=== PATIENT | female | born 1950 | race Caucasian/White ===

== ENCOUNTER 2022-05-01 10:14 | Observation (INO) ==
[2022-05-01] MEDS ORDERED: NS 0.9% 1000 ml BAG 1,000 ML IV ONE (10:15)
[2022-05-01 11:06] LABS: ABS Basophils 0.2 10^3/ul (0-0.2); ABS Eosinophils 0.3 10^3/ul (0-0.6); ABS Lymphocytes 1.5 10^3/ul (1.0-4.8); ABS Monocytes 0.6 10^3/ul (0-0.8); ABS Neutrophils 6.4 10^3/ul (1.5-7.7); Eosinophil % 3.5 %; Hematocrit 29 % (35-47); Hemoglobin 8.9 g/dL (12.0-16.0); Lymphocyte % 16.5 %; Mean Corpuscular HGB Conc 31 g/dL (31-36); Mean Corpuscular Hemoglobin 21 pg (27-31); Mean Corpuscular Volume 68 fL (80-97); Mean Platelet Volume 7.5 fL (7.4-10.4); Platelet Count 489 10^3/uL (150-450); Red Blood Count 4.27 10^6 /uL (3.70-4.87); Red Cell Distribution Width 22 % (10-15); White Blood Count 8.9 10^3/uL (3.5-10.8)
[2022-05-01 11:15] LABS: INR 4.19 (0.86-1.15)
[2022-05-01 11:42] LABS: Albumin 3.2 g/dL (3.2-5.2); Albumin/Globulin Ratio 1.4 (1-3); Calcium 7.2 mg/dL (8.6-10.3); Globulin 2.3 g/dL (2-4); HDL Cholesterol 27.6 mg/dL; Potassium 3.4 mmol/L (3.5-5.0); Total Bilirubin 0.4 mg/dL (0.2-1.0); Total Protein 5.5 g/dL (6.4-8.9); eGFR CKD-EPI 62.5 (>60)
[2022-05-01 12:26] LABS: High Sensitivity Troponin 1 Hr 6 pg/mL (<15)
[2022-05-01] MEDS ORDERED: Iohexol 350 (CONTRAST) 500 ML MDV IV ONE (12:32)
[2022-05-01 13:30] LABS: Hypochromasia 2+; Microcytosis 3+
[2022-05-01 13:33] LABS: Target Cells 1+
[2022-05-01 13:35] LABS: Acanthocytes 1+; Schistocytes 2+
[2022-05-01 13:36] LABS: Anisocytosis 2+
[2022-05-01] MEDS ORDERED: Ondansetron 4 mg VIAL 2 MG/ML 2 ml VIAL IV PRN (15:09)
[2022-05-01] MEDS ORDERED: Potassium Chlor 20 meq TAB.ER PO ONE (15:37)
[2022-05-01] MEDS ORDERED: Lactated Ringers 1000 ml BAG 1,000 ML IV SCH (16:00)
[2022-05-01] MEDS ORDERED: Warfarin per PHARMACY **NOTE FOLLOW UP SCH (16:00)
[2022-05-01 16:10] LABS: TSH Ultra Thyroid Stim Horm 2.5 mcIU/mL (0.34-5.60)
[2022-05-01 16:18] LABS: Ferritin 107.8 ng/mL (11-307)
[2022-05-01 16:21] LABS: Folate 10.12 ng/mL (5.90-24.80)
[2022-05-01] MEDS ORDERED: Cyanocobalamin INJ 1,000 MCG/ML VIAL 1 ML VIAL IM ONE (16:30)
[2022-05-01] MEDS ORDERED: Warfarin - No Order Today **NOTE FOLLOW UP ONE (17:00)
[2022-05-01] MEDS: Nicotine PATCH 21 MG/24 HR PATCH TRANSDERM SCH (17:35)
[2022-05-01 17:50] LABS: Magnesium 1.3 mg/dL (1.9-2.7)
[2022-05-01] MEDS ORDERED: Magnesium Sulf 4 GM/100 ML IV 4,000 MG/100 ML BAG IVPB ONE (18:02)
[2022-05-02 05:49] LABS: INR 3.98 (0.86-1.15)
[2022-05-02 06:03] LABS: ABS Basophils 0.1 10^3/ul (0-0.2); ABS Eosinophils 0.4 10^3/ul (0-0.6); ABS Lymphocytes 1.4 10^3/ul (1.0-4.8); ABS Monocytes 0.5 10^3/ul (0-0.8); ABS Neutrophils 4.6 10^3/ul (1.5-7.7); Calcium 9.1 mg/dL (8.6-10.3); Eosinophil % 5.1 %; Hematocrit 27 % (35-47); Hemoglobin 8.5 g/dL (12.0-16.0); Lymphocyte % 20.3 %; Magnesium 2.5 mg/dL (1.9-2.7); Mean Corpuscular HGB Conc 31 g/dL (31-36); Mean Corpuscular Hemoglobin 21 pg (27-31); Mean Corpuscular Volume 68 fL (80-97); Mean Platelet Volume 7.4 fL (7.4-10.4); Platelet Count 441 10^3/uL (150-450); Potassium 4.6 mmol/L (3.5-5.0); Red Blood Count 4.04 10^6 /uL (3.70-4.87); Red Cell Distribution Width 23 % (10-15); eGFR CKD-EPI 74.1 (>60)
[2022-05-02] MEDS: Nicotine PATCH 21 MG/24 HR PATCH TRANSDERM SCH (08:31)
[2022-05-02] MEDS ORDERED: Potassium Chlor 10 meq TAB PO SCH (09:00)
[2022-05-02] MEDS ORDERED: Warfarin - No Order Today **NOTE FOLLOW UP ONE (17:00)
[2022-05-02 17:39] VITALS: BP 152/65
== END 2022-05-02 19:30 | disposition home or self-care (01) ==
LOC: EDBD → ED 10:14 → EDHOLD 10:14 → MEDTELE 19:49
PROVIDERS: ADMIT Internal Medicine; ATTEND Internal Medicine